=== PATIENT | female | born 1980 | race Caucasian/White ===

== ENCOUNTER 2021-11-29 03:07 | Emergency (ER) | payer MEDICAID, OTHER ==
[~2021-11-29] VITALS: Ht 170.2 cm; Wt 70.3 kg
--- NOTE | 2021-11-29 03:10 | NUR ---
BIBS FOR C/O R KNEE PAIN & SWELLLING S/P FALL FROM BED A FEW DAYS AGO. PT A/OX4/ . TOLERATING R/A WELL WITH NO SOB. CONNECTED PT TO POX AND MONITOR. SAFETY MEASURES IN PLACE.
[2021-11-29 03:22] VITALS: BP 134/76
--- NOTE | 2021-11-29 03:22 | NUR ---
BIBS FOR C/O R KNEE PAIN S/P FALL FROM BED A FEW DAYS AGO. NO GROSS DEFORMITIES NOTED TO EXTREMITY. PT AWAKE AND ALERT X4 AMBULATORY WITHOUT ASSISTANCE WITH STEADY GAIT. PT CHANGED INTO GOWN AND V/S WNL.
[2021-11-29] MEDS ORDERED: IBUPROFEN 400 MG TABLET PO ONE (03:30)
[2021-11-29] MEDS ORDERED: IBUPROFEN 400 MG TABLET ONE (03:33)
--- NOTE | 2021-11-29 03:38 | NUR ---
PT SIGNED WAIVER FORM
--- NOTE | 2021-11-29 04:37 | NUR ---
MONICA WRAP APPLIED TO PT'S RIGHT KNEE
--- NOTE | 2021-11-29 04:40 | NUR ---
Patient discharged to home in stable condition. Written and verbal after care instructions given. Patient verbalizes understanding of instruction.
== END 2021-11-29 04:41 | disposition home or self-care (01) ==
LOC: ER 03:14
DX: S83.91XA Sprain of unspecified site of right knee, initial encounter (principal); F17.200 Nicotine dependence, unspecified, uncomplicated; Z60.2 Problems related to living alone; W06.XXXA Fall from bed, initial encounter; Y93.89 Activity, other specified; Y92.89 Other specified places as the place of occurrence of the external cause; Y99.8 Other external cause status
CPT/HCPCS: 73564-TC

== ENCOUNTER 2021-12-05 22:30 | Emergency (ER) | payer MEDICAID ==
[~2021-12-05] VITALS: Ht 172.7 cm; Wt 70.3 kg
[2021-12-05 22:53] VITALS: BP 125/79
--- NOTE | 2021-12-05 22:54 | NUR ---
BIBS C/O RIGHT KNEE PAIN X 2 WEEKS WAS TREATED 1 WEEK AGO FOR SAME ISSUE, PAIN STILL THERE TYLENOL STONE CLEANER NO RELIEF. PT IS A/O X 4, NO ACUTE DISTRESS NOTED. PATIENT TAKEN TO ER BED 10
[2021-12-05] MEDS ORDERED: IBUP-1955 PO (23:13)
== END 2021-12-05 23:41 | disposition home or self-care (01) ==
LOC: ER 22:37
DX: M70.41 Prepatellar bursitis, right knee (principal); Z60.2 Problems related to living alone; Z79.1 Long term (current) use of non-steroidal anti-inflammatories (NSAID); Y93.89 Activity, other specified